=== PATIENT | male | born 1980 | race Caucasian/White ===

== ENCOUNTER → 2016-07-10 | Outpatient (CLI) | payer SELFPAY | LOC: COL.RAD 11:05 | DX: Q64.4 Malformation of urachus (principal) ==

== ENCOUNTER 2017-10-27 12:28 | Emergency (ER) | payer BC ==
[~2017-10-27] VITALS: Ht 172.7 cm; Wt 99.5 kg
[2017-10-27 12:32] VITALS: TEMP 97.5
[2017-10-27] MEDS ORDERED: LIPITOR 10MG10 MG PO (13:12)
[2017-10-27] MEDS ORDERED: NORVASC 5MG5 MG/TAB PO (13:12)
[2017-10-27 16:55] LABS: COLLECTION METHOD CLEAN CATCH
[2017-10-27] MEDS ORDERED: DOXYCYCLINE 10100 MG PO (17:09)
[2017-10-27] MEDS ORDERED: NORCO 325 MG-51 TAB PO (17:09)
[2017-10-27 17:11] LABS: MUCOUS Present /lpf; PH 5 (5-8); SQUAMOUS EPITHELIAL 0-2 /hpf; URINE APPEARANCE Hazy; URINE BACTERIA None Seen /hpf; URINE BILIRUBIN Negative (NEGATIVE); URINE BLOOD Negative (NEGATIVE); URINE COLOR Yellow; URINE GLUCOSE Negative (NEGATIVE); URINE KETONE Negative (NEGATIVE); URINE LEUKOCYTE ESTERASE Negative (NEGATIVE); URINE NITRATE Negative (NEGATIVE); URINE PROTEIN(semi-quant) Negative (NEGATIVE); URINE RBC 0-2 /hpf; URINE UROBILINOGEN Negative (NEGATIVE)
[2017-10-27 17:23] VITALS: BP 164/103; PULSE 75
== END 2017-10-27 17:24 | disposition home or self-care (01) ==
LOC: COL.ER 12:28
PROVIDERS: Physician Assistant
DX: N50.811 Right testicular pain (principal); F17.210 Nicotine dependence, cigarettes, uncomplicated; I10 Essential (primary) hypertension; E78.5 Hyperlipidemia, unspecified
CPT/HCPCS: J1170; J2550

== ENCOUNTER 2020-11-11 09:29 | Emergency (ER) | payer OTHER ==
[~2020-11-11 09:29] MED LIST: DOXYCYCLINE 10100 MG PO; LIPITOR 10MG10 MG PO; NORCO 325 MG-51 TAB PO; NORVASC 5MG5 MG/TAB PO
[2020-11-11 09:49] LABS: HEMOGLOBIN 12.4 g/dl (13.5-18.0); MEAN CELL VOLUME 94 fl (80.0-100.0); MEAN CORPUSCULAR HEMOGLOBIN 31 pg (27.0-31.0); MEAN CORPUSCULAR HGB CONC 33 g/dl (33.0-37.0); MEAN PLATELET VOLUME 11.1 fl (7.4-10.4); PLATELET COUNT 238 K/mm3 (130-400); RED BLOOD COUNT 4.06 M/mm3 (4.20-5.60); REDCELL DISTRIBUTION WIDTH-CV 13.9 % (11.5-14.5)
[2020-11-11 10:04] LABS: EOSINOPHIL 4 % (0-4); LYMPHOCYTE 38 % (20.0-51.0); METAMYELOCYTE 3 % (0-0); NEUTROPHILS 53 % (42.0-75.2)
[2020-11-11 10:05] LABS: PLATELET ESTIMATE NORMAL (NORMAL)
[2020-11-11 10:17] LABS: ALANINE AMINOTRANSFERASE 290 U/L (4-49); ALBUMIN 3.7 gm/dL (3.5-5.0); ALKALINE PHOSPHATASE 55 U/L (50-136); ANION GAP 9 mmol/L (7-16); AST,SGOT 382 U/L (15-37); BILIRUBIN,TOTAL 0.5 mg/dL (0.0-1.0); BLOOD UREA NITROGEN 18 mg/dL (9-20); CALCIUM 8.6 mg/dL (8.4-10.2); CARBON DIOXIDE 21 mmol/L (22-30); CHLORIDE 109 mmol/L (98-107); CREATININE, serum 1.86 (0.66-1.25); GLUCOSE 200 mg/dL (74-106); POTASSIUM 3.6 mmol/L (3.4-5.0); SODIUM 139 mmol/L (137-145); TOTAL PROTEIN 6.4 gm/dL (6.4-8.2)
[2020-11-11 10:18] LABS: ALCOHOL(ethanol),MEDICAL < 10 mg/dL
[2020-11-11 10:34] VITALS: BP 62/40; PULSE 137
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
== END 2020-11-11 10:34 | disposition short-term general hospital (02) ==
LOC: COL.ER 09:29
PROVIDERS: Family Medicine
DX: S22.5XXA Flail chest, initial encounter for closed fracture (principal); S73.005A Unspecified dislocation of left hip, initial encounter; S32.402A Unspecified fracture of left acetabulum, initial encounter for closed fracture; S32.501A Unspecified fracture of right pubis, initial encounter for closed fracture; R57.1 Hypovolemic shock; I10 Essential (primary) hypertension; Z79.899 Other long term (current) drug therapy; V89.2XXA Person injured in unspecified motor-vehicle accident, traffic, initial encounter; Y92.411 Interstate highway as the place of occurrence of the external cause
CPT/HCPCS: J0690; J3010; J7030; J7060; P9016